=== PATIENT | female | born 1985 | race African-American/Black ===

== ENCOUNTER 2017-09-29 20:27 | Emergency (ER) | payer BC ==
[2017-09-29] MEDS ORDERED: Ibuprofen 200 MG TAB ONE (20:40)
[2017-09-29] MEDS ORDERED: Oseltamivir 75 MG CAP ONE (20:48)
== END 2017-09-29 20:58 | disposition home or self-care (01) ==
LOC: NAV ERS 20:27 → EEVIPCON 20:27 → NAV ERS 20:58
DX: J11.1 Influenza due to unidentified influenza virus with other respiratory manifestations (principal)
CPT/HCPCS: 99283